=== PATIENT | male | born 1950 | race African-American/Black ===

== ENCOUNTER 2024-04-05 05:57 | Day surgery (SDC) | payer OTHER, MEDICAID ==
[2024-04-04 09:45] VITALS: BMI 20.5
[2024-04-05] MEDS ORDERED: Vancomycin 1 GM VIAL ONE (06:10)
[2024-04-05] MEDS ORDERED: EPINEPHrine 1 MG/ML VIAL ONE (06:10)
[2024-04-05] MEDS ORDERED: Thrombin 5000 UNITS/5 ML VIAL ONE (06:10)
[2024-04-05] MEDS ORDERED: Bupivacaine PF 0.5% 30 ML VIAL ONE (06:10)
[2024-04-05] MEDS ORDERED: CEFAZOLIN 2 GM VIAL ONE (06:25)
[2024-04-05] MEDS ORDERED: CEFAZOLIN 2 GM in Sodium Chloride 0.9% 100 ML IVPB SCH (06:30)
[2024-04-05] MEDS ORDERED: PROPOFOL 20 ML ONE (06:53)
[2024-04-05] MEDS ORDERED: fentaNYL PF 100 MCG/2 ML SYRINGE ONE ×3 (06:53→10:44)
[2024-04-05] MEDS ORDERED: Rocuronium Bromide 10 MG/ML (10ML VIAL) ONE (06:53)
[2024-04-05] MEDS ORDERED: Lidocaine 1% PF 5 ML VIAL ONE (06:53)
[2024-04-05] MEDS ORDERED: PHENYLEPHRINE-NS 100 MCG/ML 10 ML SYRINGE ONE (06:56)
[2024-04-05] MEDS ORDERED: Dexamethasone 4 mg/ml Vial ONE (09:41)
[2024-04-05] MEDS ORDERED: Ondansetron PF 4 MG/2 ML Vial ONE (09:41)
[2024-04-05] MEDS ORDERED: SUGAMMADEX SODIUM 200 MG/2 ML VIAL ONE ×2 (09:42→09:54)
[2024-04-05] MEDS ORDERED: ePHEDrine Sulfate 50 MG/10 ML VIAL ONE (09:51)
[2024-04-05] MEDS ORDERED: Ketorolac Tromethamine 30 MG (1 mL) VIAL ONE (10:12)
[2024-04-05] MEDS ORDERED: Tamsulosin HCl 0.4 MG CAP ONE (10:15)
[2024-04-05] MEDS ORDERED: Acetaminophen 500 MG TAB ONE (10:15)
[2024-04-05] MEDS ORDERED: HYDROmorphone 0.5 MG/0.5 ML SYRINGE ONE (10:20)
[2024-04-05] MEDS ORDERED: Acetaminophen 500 MG TAB PO PRN (12:10)
[2024-04-05] MEDS ORDERED: Acetaminophen/Codeine 30-300mg Tablet PO PRN ×2 (12:15)
[2024-04-05] MEDS ORDERED: Promethazine HCl 12.5 MG SUPP PR PRN (12:15)
[2024-04-05] MEDS ORDERED: Ondansetron HCl/PF 4 MG/2 ML Vial IVP PRN (12:15)
[2024-04-05] MEDS ORDERED: Prochlorperazine 10 MG/2 ML VIAL IM PRN (12:15)
[2024-04-05] MEDS ORDERED: HYDROcodone/Acetaminophen 10/325 mg Tablet PO PRN ×2 (12:15)
[2024-04-05] MEDS ORDERED: Cyclobenzaprine 10 MG TAB PO PRN (12:15)
[2024-04-05] MEDS ORDERED: Ondansetron PF 4 MG/2 ML Vial IM PRN (12:15)
[2024-04-05] MEDS ORDERED: Promethazine HCl 25 MG/ML VIAL IM PRN ×2 (12:15)
[2024-04-05] MEDS ORDERED: Morphine 2 MG/ML VIAL SLOW IVP PRN (12:15)
[2024-04-05] MEDS ORDERED: Sodium Chloride 0.9% 1,000 ML IV SCH (12:15)
[2024-04-05] MEDS ORDERED: HYDROcodone/Acetaminophen 7.5/325 mg Tablet PO PRN ×2 (12:15)
[2024-04-05] MEDS ORDERED: diphenhydrAMINE 25 MG CAP PO PRN (12:15)
[2024-04-05] MEDS ORDERED: Ketorolac Tromethamine 30 MG/ML VIAL IVP PRN (12:15)
[2024-04-05] MEDS ORDERED: Promethazine 25 MG TAB PO PRN (12:15)
[2024-04-05] MEDS ORDERED: diphenhydrAMINE 50 MG/ML VIAL IVP PRN (12:15)
[2024-04-05] MEDS ORDERED: HYDROmorphone 2 MG/ML VIAL SLOW IVP PRN (12:15)
[2024-04-05] MEDS ORDERED: oxyCODONE 5 MG TAB PO PRN (12:29)
[2024-04-06] MEDS ORDERED: Tamsulosin HCl 0.4 MG CAP PO SCH (06:00)
== END 2024-04-05 14:59 | disposition home or self-care (01) ==
LOC: SDC 05:57
PROVIDERS: ATTEND Neurological Surgery
PROC: 00NY0ZZ Release Lumbar Spinal Cord, Open Approach (ICD-10-PCS; principal; 2024-04-05)
DX: M48.062 Spinal stenosis, lumbar region with neurogenic claudication (principal); M48.02 Spinal stenosis, cervical region; M51.06 Intervertebral disc disorders with myelopathy, lumbar region; M50.00 Cervical disc disorder with myelopathy, unspecified cervical region; Z87.891 Personal history of nicotine dependence; Z79.899 Other long term (current) drug therapy
CPT/HCPCS: 63047; 63048; J0171; J0665; J1100; J1171; J1885; J2405; J2704; J3370